=== PATIENT | male | born 1970 | race Caucasian/White ===

== ENCOUNTER 2016-08-19 15:58 | Emergency (ER) | payer SELFPAY ==
[2016-08-19 16:09] LABS: BASOPHIL# 0.3 X 10^3uL (0.0-0.1); BASOPHILS 2.5 % (0.0-2.0); EOSINOPHILS# 0.1 X 10^3uL (0.0-0.4); HEMATOCRIT 46.1 % (42.0-54.0); HEMOGLOBIN 15.8 g/dL (14.0-18.0); LYMPHOCYTES 25.9 % (20.0-40.0); LYMPHOCYTES# 3.2 X 10^3uL (0.8-3.8); MEAN CELL VOLUME 90.3 fL (80.0-100.0); MEAN CORPUS. HGB CONCENTRATION 34.2 g/dL (32.0-36.0); MEAN CORPUSCULAR HEMOGLOBIN 30.9 pg (29.0-35.0); MEAN PLATELET VOLUME 8.3 fL (7.4-10.4); MONOCYTES 8.1 % (2.0-10.0); NEUTROPHILS 62.5 % (54.0-75.0); NEUTROPHILS# 7.8 X 10^3uL (2.6-6.7); PLATELET COUNT 313 X 10^3uL (130-440); RED CELL DISTRIBUTION WIDTH 12.9 % (11.5-14.5); WHITE BLOOD COUNT 12.4 X 10^3uL (3.9-10.7)
--- NOTE | 2016-08-19 16:17 | CT REPORT ---
HISTORY: Stroke alert. TECHNIQUE: Axial non-contrast images obtained from skull vertex through foramen magnum. Dose reduction technique was utilized. FINDINGS: There is no evidence of acute hemorrhage, mass, or infarct. Ventricles and sulci are normal in size for the patient's age. Periventricular white matter is within normal limits. Reynolds-white differentia tion is maintained. Basilar cisterns are normal. The calvarium is intact. Paranasal sinuses and mastoid air cells are clear. IMPRESSION: Normal head CT. Results were communicated to Dao Dallas at 08/19/2016 4:14 PM. Final Electronic Signature: This report was electronically signed by Meliton Villa MD, FACR on 4:14 PM. nataliia /
[2016-08-19 16:21] LABS: BLOOD UREA NITROGEN 20 mg/dL (9-20); CALCIUM 9.9 mg/dL (8.4-10.2); CHLORIDE 108 mmol/L (98-107); CREATINE KINASE 388 U/L (55-170); EST GLOMERULAR FILTRATION RATE > 60 mL/min; GLUCOSE 132 mg/dL (70-100); POTASSIUM 4.5 mmol/L (3.5-5.1); SODIUM 142 mmol/L (137-145)
[2016-08-19 16:35] LABS: INR 0.9; PARTIAL THROMBOPLASTIN TIME 28 sec (24-38)
[2016-08-19] MEDS ORDERED: ENOXAPARIN SODIUM 100 MG/ML SYR SUBCUT ONE (16:54)
[2016-08-19] MEDS ORDERED: ENOXAPARIN SODIUM 60 MG/0.6 ML SYR SUBCUT ONE (16:54)
--- NOTE | 2016-08-19 17:17 | ER NURSING DOCUMENTATION ---
Nurse's Notes [facility] Name:Augustus Lewis Age:45 yrs Sex:Male :1970 Arrival Date:08/19/2016 Time:15:58 BedTrauma-A Private MD: Diagnosis:Aphasia from CVA Presentation: 08/19 16:00 Acuity: RENATA 2 st 16:10 Presenting complaint: EMS states: pt was presenting with expressive aphasia. last seen bw2 normal at 1400 today per . Transition of care: patient was not received from another setting of care. Time Last Known Well for patient was 1400. No acute neurological deficit is noted. The patients blood glucose was checked before arriving to the hospital and was found to be normal. 16:10 Method Of Arrival: EMS: 400 bw2 Triage Assessment: 16:15 The onset of the patients symptoms was less than three hours ago. General: Appears bw2 distressed, well developed, Behavior is inappropriate for age. Pain: Denies pain. Neuro: Reports he feels fuzzy. pt states that he is not acting himself. pt is not able to answer questions appropriately . Respiratory: No deficits noted. Breath sounds are clear bilaterally. GI: No deficits noted. Stroke Activation: Physician: ED Attending; Name: Celena; Notified At: 16:00; Arrived At: 16:00 Physician: design engineer agricultural equipment; Name: Jose; Notified At: 16:00; Arrived At: 16:00 Physician: Target Aircraft Controller; Name: roly; Notified At: 16:00; Arrived At: 16:00 Physician: [not used]; Name: ; Notified At: ; Arrived At: Physician: [not used]; Name: ; Notified At: ; Arrived At: Historical: - Allergies: No known drug Allergies; - Home Meds: 1. metoprolol tartrate 50 mg oral tab 1 tab 2 times per day with meals 2. hydralazine 10 mg oral tab 1 tab 3 times a day. with food 3. simvastatin 20 mg oral tab 1 tab once daily in the evening 4. Lisinopril Oral 5. paroxetine HCl 20 mg oral tab 1 tab once daily - Tetanus: unknown. - Ebola Screening: : Patient negative for fever greater than or equal to 101.5 degrees Fahrenheit, and additional compatible Ebola Virus Disease symptoms. Patient denies exposure to infectious person. Patient denies travel to an Ebola-affected area in the 21 days before illness onset. No symptoms or risks identified at this time. . - Immunization history: Flu Vaccine unknown. - Social history: Smoking status: Patient uses tobacco products, current every day smoker. Patient uses street drugs, marijuana. Screenin:54 Infectious Disease Risk None. Abuse screen: Denies threats or abuse. Nutritional bw2 screening: No deficits noted. Assessment: 16:53 See Triage Assessment done by same RN. Cardiovascular: No deficits noted. Denies bw2 fatigue, lightheadedness, palpitations, syncope, Chest pain is denied. GI: No deficits noted. Vital Signs: 16:08 Weight 117.93 kg; sc1 16:24 BP 106 / 50 (auto/); Pulse 62; Resp 17; Pulse Ox 96% ; bw2 16:57 BP 110 / 52; Pulse 62; Resp 17; Pulse Ox 96% on R/A; bw2 NIH Stroke Scale Scores: 16:10 NIHSS Score: 4 2 ED Course: 15:59 Patient arrived in ED. jt 16:[address] 16:[address] hz 16:[address]. hz 16:10 Ruma Rabago is Primary Nurse. bw2 16:11 Dennis Dallas MD is Attending Physician. tl1 16:32 EKG attached sc1 16:38 Inserted peripheral IV: 18 gauge in left antecubital area and blood collected. st 16:54 Valuables Given to family. Patient has correct armband on for positive identification. bw2 Placed in gown. Bed in low position. Side rails up X2. surveillance system monitor on. Pulse ox on. NIBP on. 16:54 Inserted peripheral IV: 18 gauge in right hand. bw2 17:04 Patient helicopter called for stand by. bw2 Administered Medications: 16:20 Drug: Aspirin Chewable Tablet 324 mg; Route: PO; bw2 17:17 Follow up: Response: No adverse reaction bw2 16:41 Drug: Lovenox 120 mg; Route: Sub-Q; Site: right lower abdomen; sc1 17:17 Follow up: Response: No adverse reaction bw2 16:42 CANCELLED (Physician Discretion): niCARdipine IVPB 5 mg/hr IV at calculated rate sc1 continuous; May increase rate 2.5 mg/hr every 5 minutes to max 15 mg/hr Point of Care Testing: Blood Glucose: 16:53 Blood Glucose: 115 mg/dL; 2 Ranges: Outcome: 16:57 Transferred: Patient will be transferred to: [facility]. Facility [facility] Acceptance Time: August 19, 2016 at 16:20 Patient's face sheet was faxed to accepting facility. Face Sheet included patient's name, address, age, gender, contact information and insurance information. Patient will be transported by: [facility] Helicopter. Report called to: nurse unable to give report at this time Nurse and Physician Charting and Notes were sent to Accepting Facility. All tests and/or procedures with results, if applicable, were sent to accepting facility. 16:57 critical 16:57 Discharge Assessment: Patient lethargic. 16:57 Discharge instructions given to patient, significant other, Instructed on need for transfer Demonstrated understanding of instructions. 17:12 Transferred: Report called to: Sue SINGH 2 17:12 Report given to Flight crew 17:12 Discharge instructions given to 17:13 ER care complete, transfer ordered by . tl1 17:16 Patient left the ED. 2 NIH Stroke Scale - NIH Stroke Score Date: 08/19/2016 Time: 16:10 Total Score = 4 1a. Level of Consciousness (LOC) - 0(Alert) 1b. Level of Consciousness (LOC) (Year & Age) - 2(Neither) 1c. LOC Commands (Open & Closes Eyes/Lead Mobile Developer) - 0(Both) 2. Best Gaze (Lateral Gaze Paresis) - 0(Normal) 3. Visual Field Loss - 0(No visual loss) 4. Facial Palsy - 0(Normal) 5a. Left Arm: Motor (10-second hold) - 0(No drift) 5b. Right Arm: Motor (10-second hold) - 0(No drift) 6a. Left Leg: Motor (5-second hold ? always test supine) - 0(No drift) 6b. Right Leg: Motor (5-second hold ? always test supine) - 0(No drift) 7. Limb Ataxia (finger/nose & heel/severino ? test with eyes open) - 0(Absent) 8. Sensory Loss (pinprick arms/legs/face) - 0(Normal) 9. Best Language: Aphasia (description/naming/reading) - 1(Mild to moderate aphasia) 10. Dysarthria (speech clarity ? read or repeat words) - 1(Mild to Moderate) 11. Extinction and Inattention (visual/tactile/auditory/spatial/personal) - 0(No abnormality) Initials: bw2 Signatures: Hannah Hansen RN RN st Campbell, Sandy, RN RN nj1 Dennis Dallas MD MD 1 Dinah Holden [facility]2 Kerri Donohue
--- NOTE | 2016-08-19 17:17 | ER PHYSICIAN DOCUMENTATION ---
Physician Documentation [facility] Name:Augustus Lewis Age:45 yrs Sex:Male :1970 Arrival Date:08/19/2016 Time:15:58 BedTrauma-A Private MD: Dennis Willson Disposition: 08/19 17:25 Chart complete. tl1 Disposition: 08/19/16 17:13 Transfer ordered to [facility]. Diagnosis is Aphasia from CVA. - Reason for transfer: Higher level of care. - Accepting physician is Kena Zayas. - Condition is Good. - Problem is new. - Symptoms have improved. COBRA Form completed? Transfer - Mode of Transportation Helicopter HPI: 16:00 This 45 yrs old Male presents to ER via EMS with complaints of S/S of tl1 Possible Stroke. 16:00 The patient's problem is reported as a facial droop, dysphasia. Onset: The tl1 symptom(s)/episode began/occurred suddenly, at 15:30. Duration: This was a single incident, The episode is continuous. Context: the episode(s) was witnessed, by family, . Associated signs and symptoms: Pertinent positives: Left facial droop and an expressive aphasia.. Severity of symptoms: At their worst the symptoms were mild in the emergency department the symptoms have improved the facial droop has resolved. Patient's baseline: Neuro: alert and fully oriented, Motor: no deficits, Ambulation: walks without assistance, Speech: normal, The patient has a previous history of SAH in 2015 at [facility].. Historical: - Allergies: No known drug Allergies; - Home Meds: 1. metoprolol tartrate 50 mg oral tab 1 tab 2 times per day with meals 2. hydralazine 10 mg oral tab 1 tab 3 times a day. with food 3. simvastatin 20 mg oral tab 1 tab once daily in the evening 4. Lisinopril Oral 5. paroxetine HCl 20 mg oral tab 1 tab once daily - Tetanus: unknown. - Ebola Screening: : Patient negative for fever greater than or equal to 101.5 degrees Fahrenheit, and additional compatible Ebola Virus Disease symptoms. Patient denies exposure to infectious person. Patient denies travel to an Ebola-affected area in the 21 days before illness onset. No symptoms or risks identified at this time. . - Immunization history: Flu Vaccine unknown. - Social history: Smoking status: Patient uses tobacco products, current every day smoker. Patient uses street drugs, marijuana. ROS: 16:15 Neuro: Positive for speech changes, weakness, left facial droop. tl1 16:15 Unable to obtain ROS due to patient's speech is incomprehensible, expressive aphasia.. Exam: 16:15 Constitutional: The patient appears in no acute distress, alert, awake, comfortable, tl1 well developed, well hydrated, well groomed, well nourished. 16:15 Head/face: Exam is negative for acute changes. 16:15 Eyes: Periorbital structures: appear normal, Pupils: equal, round, and reactive to light and accomodation, equal, right pupil is approximately 2 mm(s), left pupil is approximately 2 mm(s), Extraocular movements: intact throughout, Corneas: are normal. 16:15 ENT: Exam is negative for acute changes. 16:15 Neck: ROM/movement: is normal, is supple, Lymph nodes: no appreciated lymphadenopathy. 16:15 Cardiovascular: Rate: normal, Rhythm: regular, Heart sounds: normal. 16:15 Respiratory: the patient does not display signs of respiratory distress, Respirations: normal, no acute changes, Breath sounds: are normal. 16:15 Abdomen/GI: Palpation: abdomen is soft and non-tender. 16:15 Musculoskeletal/extremity: Exam is negative for acute changes. 16:15 Skin: Exam negative for acute changes. 16:15 Neuro: Orientation: unable to test, Mentation: able to follow commands, Memory: unable to test, Cranial nerves: grossly normal, Motor: moves all fours, strength is 5/5 in the right hand, left hand, right foot and left foot, Sensation: unable to test, Gait: not tested. Deep tendon reflexes are 2+ (normal) in the right brachioradialis, right patellar, left brachioradialis and left patellar. Vital Signs: 16:08 Weight 117.93 kg; sc1 16:24 BP 106 / 50 (auto/); Pulse 62; Resp 17; Pulse Ox 96% ; bw2 16:57 BP 110 / 52; Pulse 62; Resp 17; Pulse Ox 96% on R/A; bw2 NIH Stroke Scale Scores: 16:10 NIHSS Score: 4 bw2 MDM: 16:11 Patient medically screened. tl1 16:20 Differential diagnosis: CVA, TIA, hypoglycemia, seizure. Data reviewed: vital signs, tl1 nurses notes, lab test result(s), cardiac enzymes, CBC, electrolytes, EKG, radiologic studies, CT scan, and as a result, I will *Transfer Patient. Test interpretation: by ED physician or midlevel provider: ECG. Counseling: I had a detailed discussion with the patient and/or guardian regarding: the historical points, exam findings, and any diagnostic results supporting the discharge/admit diagnosis, lab results, radiology results, the need to transfer to another facility. ECG:. 16:22 Patient medically screened. tl1 16:32 EKG attached [facility] 08/19 16:26 Order name: CBC AUTO DIF, MDIF/RMOR IF IND; Complete Time: 20:54 [facility] 08/19 20:53 Interpretation: WHITE BLOOD COUNT 12.4; HEMOGLOBIN 15.8; HEMATOCRIT 46.1; PLATELET tl1 COUNT 313. 08/19 16:27 Order name: BASIC METABOLIC PANEL; Complete Time: 20:54 [facility] 08/19 20:53 Interpretation: SODIUM 142; POTASSIUM 4.5; CHLORIDE 108; CARBON DIOXIDE 19; GLUCOSE tl1 132; BLOOD UREA NITROGEN 20; CREATININE 0.9; CALCIUM 9.9. 08/19 16:27 Order name: CREATINE KINASE; Complete Time: 20:54 [facility] 08/19 20:53 Interpretation: Abnormal: CREATINE KINASE 388. [facility] 08/19 16:40 Order name: PROTIME/INR; Complete Time: 20:54 [facility] 08/19 20:53 Interpretation: Normal: PROTIME 14.4; INR 0.9. [facility] 08/19 16:40 Order name: PARTIAL THROMBOPLASTIN TIME; Complete Time: 20:54 [facility] 08/19 20:53 Interpretation: Normal: PARTIAL THROMBOPLASTIN TIME 28. [facility] 08/19 16:47 Order name: CKMB; Complete Time: 20:54 [facility] 08/19 20:53 Interpretation: Abnormal: CKMB 11.00. [facility] 08/19 16:47 Order name: TROPONIN I; Complete Time: 20:54 [facility] 08/19 20:53 Interpretation: Abnormal: TROPONIN I 1.590. [facility] 08/19 16:18 Order name: CAT SCAN; HEAD W/O CON [id number]; Complete Time: 20:54 [facility] 08/19 20:54 Interpretation: NAD. SEE NOTE. 1 08/19 16:18 Order name: 12-lead EKG; Complete Time: 16:42 tl1 08/19 20:54 Interpretation: SEE NOTE. tl1 08/19 16:18 Order name: Continuous Cardiac Monitoring; Complete Time: 16:42 tl1 08/19 16:18 Order name: I & O; Complete Time: 16:42 tl1 08/19 16:18 Order name: IV saline lock X2; Complete Time: 16:42 tl1 08/19 16:18 Order name: NIH Stroke Scale; Complete Time: 16:42 tl1 08/19 16:18 Order name: NPO; Complete Time: 16:42 tl1 08/19 16:18 Order name: Pulse Ox Continuous; Complete Time: 16:42 tl1 08/19 16:18 Order name: Stroke Team Activation Overhead; Complete Time: 16:42 tl1 EC:06 Rate is 68 beats/min. Rhythm is regular. QRS [place] is Normal. IN interval is normal at tl1 152 msec. QRS interval is normal at 95 msec. QT interval is normal at 450 msec. No Q waves. T waves are Inverted in leads V2, V3, V4, V5, V6. ST Segment is depressed in leads V4, V5, V6. Clinical impression: NSR with possible ischemic changes in the anterolateral leads. Interpreted by me. Reviewed by me. Dispensed Medications: 16:20 Drug: Aspirin Chewable Tablet 324 mg; Route: PO; bw2 17:17 Follow up: Response: No adverse reaction bw2 16:41 Drug: Lovenox 120 mg; Route: Sub-Q; Site: right lower abdomen; sc1 17:17 Follow up: Response: No adverse reaction bw2 16:42 CANCELLED (Physician Discretion): niCARdipine IVPB 5 mg/hr IV at calculated rate sc1 continuous; May increase rate 2.5 mg/hr every 5 minutes to max 15 mg/hr Point of Care Testing: Blood Glucose: 16:53 Blood Glucose: 115 mg/dL; bw2 Ranges: Critical Glucose Levels:Adult <50 mg/dl or >400 mg/dl <40 mg/dl or >180 mg/dl Critical care time excluding procedures: 16:20 Critical care time: Bedside Care: 30 minutes, Consultation: 10 minutes, Family tl1 Intervention: 10 minutes. Total time: 50 minutes NIH Stroke Scale - NIH Stroke Score Date: 08/19/2016 Time: 16:10 Total Score = 4 1a. Level of Consciousness (LOC) - 0(Alert) 1b. Level of Consciousness (LOC) (Year & Age) - 2(Neither) 1c. LOC Commands (Open & Closes Eyes/Bird Sitter) - 0(Both) 2. Best Gaze (Lateral Gaze Paresis) - 0(Normal) 3. Visual Field Loss - 0(No visual loss) 4. Facial Palsy - 0(Normal) 5a. Left Arm: Motor (10-second hold) - 0(No drift) 5b. Right Arm: Motor (10-second hold) - 0(No drift) 6a. Left Leg: Motor (5-second hold ? always test supine) - 0(No drift) 6b. Right Leg: Motor (5-second hold ? always test supine) - 0(No drift) 7. Limb Ataxia (finger/nose & heel/severino ? test with eyes open) - 0(Absent) 8. Sensory Loss (pinprick arms/legs/face) - 0(Normal) 9. Best Language: Aphasia (description/naming/reading) - 1(Mild to moderate aphasia) 10. Dysarthria (speech clarity ? read or repeat words) - 1(Mild to Moderate) 11. Extinction and Inattention (visual/tactile/auditory/spatial/personal) - 0(No abnormality) Initials: bw2 Signatures: Hannah Hansen RN RN st Campbell, Sandy, RN RN sc1 Leigh, Tom, MD MD 1 Ruma Rabago bw2
== END 2016-08-19 17:17 | disposition short-term general hospital (02) ==
LOC: ER 15:58
DX: I63.59 Cerebral infarction due to unspecified occlusion or stenosis of other cerebral artery (principal); R29.704 NIHSS score 4; R53.1 Weakness; R94.31 Abnormal electrocardiogram [ECG] [EKG]; Z79.899 Other long term (current) drug therapy; F17.210 Nicotine dependence, cigarettes, uncomplicated; Z99.89 Dependence on other enabling machines and devices; Z74.3 Need for continuous supervision
CPT/HCPCS: 70450; 80048; 82550; 82553; 84484; 85025; 85610; 85730; 93005; 96372; 99285; A0420; A0425; A0427; J1650

== ENCOUNTER 2016-08-23 04:09 | Emergency (ER) | payer SELFPAY ==
--- NOTE | 2016-08-23 05:07 | ER PHYSICIAN DOCUMENTATION ---
Physician Documentation [facility] Name:Augustus Lewis Age:45 yrs Sex:Male :1970 Arrival Date:08/23/2016 Time:04:09 BedTrauma-C Private MD:Shanell Cunningham ED Celena Dennis Disposition: 08/23 05:07 Chart complete. tl1 Disposition: 08/23/16 04:50 Discharged to Home/Self Care. Impression: Adjustment Disorder with Anxiety, Anxiety Reaction. - Condition is Good. - Discharge Instructions: ANXIETY REACTION. - Prescriptions for Ativan 1 mg Oral Tablet - take 1 tablet by ORAL route every 8 hours As needed; 10 tablet. - Medical Reconciliation form form. - Follow up: Shanell Cunningham MD; When: 1 - 2 days; Reason: Recheck today's complaints, Continuance of care. - Problem is new. - Symptoms have improved. HPI: 04:20 This 45 yrs old Male presents to ER via Walk In with complaints of Anxiety. tl1 04:20 The patient presents to the emergency department with anxiety. Onset: The tl1 symptom(s)/episode began/occurred gradually, this morning. Past psychiatric history: Prior diagnosis: anxiety, panic disorder. Severity of symptoms: At their worst the symptoms were severe in the emergency department the symptoms have improved. The patient has experienced similar episodes in the past, multiple times, chronically. The patient has been recently seen at the [facility] Emergency Department, for unrelated complaints, Transported by Helicopter to [facility] for stroke symptoms including right arm and face weakness and speech problems, as well as anterior ischemic changes on EKG. Stroke symptoms cleared, but cardiac cath led to 3 LAD stents. . He denies chest pain, dyspnea, n/v/diaphoresis or any focal neurologic changes. He has had many similar episodes in the past. He said he did not sleep the last 2 nigts in the hospital and has not been able to fall asleep tonight.. Historical: - Allergies: No known drug Allergies; - Home Meds: 1. metoprolol tartrate 50 mg oral tab 1 tab 2 times per day with meals 2. hydralazine 10 mg oral tab 1 tab 3 times a day. with food 3. simvastatin 20 mg oral tab 1 tab once daily in the evening 4. Lisinopril Oral 5. paroxetine HCl 20 mg oral tab 1 tab once daily 6. Xanax 2 mg oral tab for Anxiety - PMHx: Non stemi; ischemic stroke; hemorrhagic stroke; Hypertension; hyperlipidemia; ANXIETY; - PSHx: KNEE SURGERY; arm surgery; cleft palate; - Tetanus: < 10 years. - Ebola Screening: : Patient negative for fever greater than or equal to 101.5 degrees Fahrenheit, and additional compatible Ebola Virus Disease symptoms. Patient denies exposure to infectious person. Patient denies travel to an Ebola-affected area in the 21 days before illness onset. No symptoms or risks identified at this time. . - Immunization history: Flu Vaccine None. - Social history: Smoking status: Patient uses tobacco products, current every day smoker. Patient/guardian denies using alcohol, street drugs. ROS: 04:57 Constitutional: Positive for fatigue, malaise, Negative for chills, fever. tl1 04:57 Neck: Negative for pain with movement, pain at rest. 04:57 Cardiovascular: Negative for chest pain, orthopnea, palpitations, paroxysmal nocturnal dyspnea. 04:57 Respiratory: Negative for cough, hemoptysis, orthopnea, pleurisy, shortness of breath, sputum production, wheezing. 04:57 Abdomen/GI: Negative for abdominal pain, nausea, vomiting. 04:57 Neuro: Negative for dizziness, headache, numbness, tingling, weakness. 04:57 Psych: Positive for anxiety, insomnia, Negative for drug dependence, alcohol dependence. Exam: 04:59 Constitutional: The patient appears alert, awake, comfortable, non-diaphoretic, tl1 non-toxic, well developed, well hydrated, well groomed, well nourished, anxious, restless. 04:59 Head/face: Exam is negative for acute changes. 04:59 Eyes: Pupils: equal, round, and reactive to light and accomodation. 04:59 Neck: ROM/movement: is normal, without pain. 04:59 Cardiovascular: Rate: normal, Rhythm: regular, Heart sounds: normal, no murmur, no rub, no gallop, Edema: is not appreciated, JVD: is not appreciated. 04:59 Respiratory: the patient does not display signs of respiratory distress, Respirations: normal, Breath sounds: are normal, no rales, rhonchi, no wheezing. 04:59 Abdomen/GI: Palpation: abdomen is soft and non-tender. 04:59 Skin: Exam negative for acute changes. 04:59 Neuro: Orientation: is normal, Mentation: is normal, Memory: is normal, Cranial nerves: Motor: is normal, moves all fours, Gait: is steady, at a normal pace, without difficulty, appropriate for age. 04:59 Psych: Behavior/mood is pleasant, cooperative, anxious, Affect is animated, Oriented to person, place, time, Patient has no thoughts/intents to harm self or others. Judgement / Insight is normal. Memory is normal. Delusions/hallucinations are not present. Vital Signs: 04:24 BP 140 / 95; Pulse 75; Resp 17; Temp 98.3; Pulse Ox 95% on R/A; Weight 115.67 kg; mk2 Height 6 ft. 6 in. (198.12 cm); Pain 0/10; 04:56 Pulse 88 MON; Resp 19; Pulse Ox 94% ; mk2 04:56 BP 135 / 62; Pain 0/10; mk2 04:24 Body Mass Index 29.47 (115.67 kg, 198.12 cm) mk2 MDM: 04:39 Patient medically screened. tl1 05:01 Differential diagnosis: drug withdrawal. depression, anxiety. Data reviewed: vital tl1 signs, nurses notes, old medical records, and as a result, I will admit patient. Test interpretation: by ED physician or midlevel provider: ECG. Counseling: I had a detailed discussion with the patient and/or guardian regarding: the historical points, exam findings, and any diagnostic results supporting the discharge/admit diagnosis, the need for outpatient follow up, to return to the emergency department if symptoms worsen or persist or if there are any questions or concerns that arise at home. Response to treatment: the patient's symptoms have markedly improved after treatment, and as a result, I will discharge patient. ED course: By the time I saw him, he had already calmed himself down a lot. He was feeling much better at the time of d/c. I thought he was safe to drive himself the few blocks to his apartment.. 05:02 EKG attached mk2 05:08 ECG:. tl1 08/23 04:26 Order name: EKG - 12 Lead; Complete Time: : mk2 EC:09 Rate is 70 beats/min. Rhythm is regular, Normal Sinus Rhythm. QRS [place] is Normal. PA tl1 interval is normal at 154 msec. QRS interval is normal at 94 msec. QT interval is normal at 407 msec. No Q waves. T waves are Inverted in leads aVL, V2, V3, V4, V5. No ST changes noted. Clinical impression: NSR with nonspecific anterolateral T wave abnormalities (inversion). We were unable to obtain ECGs from his recent hospitalization at [facility]. Interpreted by me. Reviewed by me. Dispensed Medications: 05:08 Drug: Ativan 4 mg; Route: PO; mk2 05:08 Follow up: Response: Pharmacy closed - take home med pack mk2 Signatures: Sharlene Jennings RN RN mk2 Dennis Dallas MD MD tl1
--- NOTE | 2016-08-23 05:07 | ER NURSING DOCUMENTATION ---
Nurse's Notes [facility] Name:Augustus Lewis Age:45 yrs Sex:Male :1970 Arrival Date:08/23/2016 Time:04:09 BedTrauma-C Private MD:Shanell Cunningham Diagnosis:Adjustment Disorder with Anxiety;Anxiety Reaction Presentation: 08/23 04:14 Presenting complaint: Patient states: I was just released from [facility] after having a heart mk2 attack and a stroke last week. I had 3 stents placed at [facility] and my stroke symptoms resolved. But tonight I'm just having a lot of anxiety and I haven't slept in 3 days. I just need something to relax." Pt denies pain, sob and diaphoresis tonight. Only complaint is anxiety. vitals wnl. Transition of care: Home. Notified ED Physician of Dr. Dallas notified. 04:14 Acuity: RENATA 3 2 04:14 Method Of Arrival: Walk In [facility] 04:22 Care prior to arrival: Medication(s) given: 2 mg Xanex and a sleeping pill. [facility] Triage Assessment: 04:23 General: Appears in no apparent distress, Behavior is cooperative, pleasant. Pain: mk2 Denies pain. Neuro: Level of Consciousness is awake, alert, Oriented to person, place, time, event. Cardiovascular: Heart tones S1 S2 Rhythm is sinus rhythm. Respiratory: Breath sounds are clear bilaterally. Denies shortness of breath. Derm: No deficits noted. Parent/caregiver reports the patient having anxiety and inability to sleep. Historical: - Allergies: No known drug Allergies; - Home Meds: 1. metoprolol tartrate 50 mg oral tab 1 tab 2 times per day with meals 2. hydralazine 10 mg oral tab 1 tab 3 times a day. with food 3. simvastatin 20 mg oral tab 1 tab once daily in the evening 4. Lisinopril Oral 5. paroxetine HCl 20 mg oral tab 1 tab once daily 6. Xanax 2 mg oral tab for Anxiety - PMHx: Non stemi; ischemic stroke; hemorrhagic stroke; Hypertension; hyperlipidemia; ANXIETY; - PSHx: KNEE SURGERY; arm surgery; cleft palate; - Tetanus: < 10 years. - Ebola Screening: : Patient negative for fever greater than or equal to 101.5 degrees Fahrenheit, and additional compatible Ebola Virus Disease symptoms. Patient denies exposure to infectious person. Patient denies travel to an Ebola-affected area in the 21 days before illness onset. No symptoms or risks identified at this time. . - Immunization history: Flu Vaccine None. - Social history: Smoking status: Patient uses tobacco products, current every day smoker. Patient/guardian denies using alcohol, street drugs. Screenin:25 Infectious Disease Risk None. Abuse screen: Denies threats or abuse. Nutritional mk2 screening: No deficits noted. Suicide Risk Assessment: Suicidal Thinking Present - No ( 0 points). Assessment: 04:25 See Triage Assessment done by same RN. mk2 Vital Signs: 04:24 BP 140 / 95; Pulse 75; Resp 17; Temp 98.3; Pulse Ox 95% on R/A; Weight 115.67 kg; mk2 Height 6 ft. 6 in. (198.12 cm); Pain 0/10; 04:56 Pulse 88 MON; Resp 19; Pulse Ox 94% ; mk2 04:56 BP 135 / 62; Pain 0/10; mk2 04:24 Body Mass Index 29.47 (115.67 kg, 198.12 cm) mk2 ED Course: 04:09 EKG done. (by ED staff). mk2 04:10 Patient arrived in ED. em2 04:10 Shanell Cunningham MD is Private Physician. em2 04:14 Sharlene Jennings, RN is Primary Nurse. mk2 04:16 Triage completed. mk2 04:25 Arm band placed on Bed in low position Call Light in Reach Gowned HOB Elevated Side mk2 rails up x1. 04:25 Valuables Remains with patient. quality assurance monitor final on. Pulse ox on. NIBP on. Verbal mk2 reassurance given. 04:38 Dennis Dallas MD is Attending Physician. tl1 04:47 Shanell Cunningham MD is Referral Physician. tl1 05:02 EKG attached mk2 05:07 Primary Nurse role handed off by Sharlene Jennings, RN mk2 05:07 Sharlene Jennings, RN is Primary Nurse. mk2 05:08 Pt left without script, message left that it is waiting up front in ED. mk2 Administered Medications: 05:08 Drug: Ativan 4 mg; Route: PO; mk2 05:08 Follow up: Response: Pharmacy closed - take home med pack 2 Outcome: 04:50 Discharge ordered by . tl1 05:02 Discharged to home ambulatory. mk2 05:02 Condition: good 05:02 Discharge Assessment: Patient awake, alert and oriented x 3. No cognitive and/or functional deficits noted. Patient verbalized understanding of disposition instructions. 05:02 Discharge instructions given to patient, Instructed on discharge instructions, follow up and referral plans. medication usage, Prescriptions given X 1. 05:06 Patient left the ED. 2 05:09 Patient left the ED. 2 08/24 14:13 Discharge F/U Call: Unable to reach: no answer st Signatures: Hannah Hansen, RN RN Sharlene Escalante RN RN mk2 Prince-Sergio [email or web address] Dennis Dallas MD MD tl1
[2016-08-23] MEDS ORDERED: LORazepam 1 MG TABLET ONE (05:11)
== END 2016-08-23 05:10 | disposition home or self-care (01) ==
LOC: ER 04:09
DX: F43.22 Adjustment disorder with anxiety (principal); G47.00 Insomnia, unspecified; R53.83 Other fatigue; R53.81 Other malaise; Z86.73 Personal history of transient ischemic attack (TIA), and cerebral infarction without residual deficits; Z95.5 Presence of coronary angioplasty implant and graft; I10 Essential (primary) hypertension; Z79.899 Other long term (current) drug therapy; F17.210 Nicotine dependence, cigarettes, uncomplicated
CPT/HCPCS: 93005; 99284